=== PATIENT | female | born 1935 | race Caucasian/White ===

== ENCOUNTER 2018-09-20 09:30 | Emergency (ER) | payer MEDICARE ==
[~2018-09-20] VITALS: Ht 165.1 cm; Wt 72.6 kg
--- NOTE | 2018-09-20 10:45 | NUR ---
EXPLAINED TO PATIENT AND HER DAUGTER HOW TO EMPTY URINE FROM LEG BAG WELL BEDSIDE DRAINAGE. I HAD HER DEMONSTRATE MULTIPLE TIMES ON BOTH. THEN RETURN DEMO DONE X 2 ON HOW TO SWITCH FROM LEG BACK TO BEDSIDE DRAINAGE BAG. PATIENT UPSET AND FRUSTRATED THAT SHE HAS TO DO THIS. EMOTIONAL SUPPORT GIVEN. SHE IS CALLING HER DOCTOR TO SEE IF SHE CAN GET A QUICKER APPT INSTEAD OF September. PATIENT AND DAUGHTER BOTH PERFOMED RETURN DEMONSTRATIONS AND VERBALIZED IMPORTANCE OF KEEPING BAG BELOW KIDNEY
== END 2018-09-20 11:04 | disposition home or self-care (01) ==
LOC: ER 09:30
DX: R33.9 Retention of urine, unspecified (principal); Z88.2 Allergy status to sulfonamides
CPT/HCPCS: 51700; 99282